=== PATIENT | female | born 1970 | race Caucasian/White ===

== ENCOUNTER 2022-12-17 23:17 | Emergency (ER) | payer OTHER ==
[2022-12-17 23:40] VITALS: RESP 18; BMI 32.9
[2022-12-18 00:47] VITALS: BP 127/76; PULSE 73; TEMP 98.7
[2022-12-18] MEDS ORDERED: ACETAMINOPHEN 1000 MG/100 ML BAG IVPB ONE (02:46)
[2022-12-18] MEDS ORDERED: DEXAMETHASONE SOD PHOSPHATE 10 MG/1 ML VIAL IVPUSH ONE (02:49)
[2022-12-18] MEDS ORDERED: DEXAMETHASONE SOD PHOSPHATE 10 MG/1 ML VIAL ONE (03:02)
[2022-12-18] MEDS ORDERED: ACETAMINOPHEN INJECTION 100 ML IVPB ONE (03:02)
[2022-12-18 03:19] LABS: BASO % 0.7 % (0-2.0); EOS % 0.6 % (0-4.5); HEMATOCRIT 46.4 % (32.4-45.2); HEMOGLOBIN 15.5 GM/dL (10.7-15.3); LYMPH % 30.2 % (8-40); MCH 30.6 pg (25.7-33.7); MCHC 33.5 g/dl (32.0-36.0); MEAN CELL VOLUME 91.6 fl (80-96); MEAN PLT VOLUME 9.7 fl (7.5-11.1); NEUT % 61.5 % (42.8-82.8); PLATELET COUNT 204 10^3/uL (134-434); RBC 5.06 M/mm3 (3.60-5.2); RDW 13.4 % (11.6-15.6)
[2022-12-18 04:03] LABS: POTASSIUM 4.7 mmol/L (3.5-5.1)
[2022-12-18 04:05] LABS: CALCIUM 9.7 mg/dL (8.5-10.1)
[2022-12-18 04:06] LABS: BLOOD UREA NITROGEN 9.3 mg/dL (7-18)
[2022-12-18 04:09] LABS: CREATININE 0.7 mg/dL (0.55-1.3)
[2022-12-18 04:10] LABS: BILIRUBIN,TOTAL 0.4 mg/dL (0.2-1); TOT PROT 7.8 g/dl (6.4-8.2)
== END 2022-12-18 04:51 | disposition home or self-care (01) ==
LOC: JER 23:17
PROC: 3E033NZ Introduction of Analgesics, Hypnotics, Sedatives into Peripheral Vein, Percutaneous Approach (ICD-10-PCS; principal; 2022-12-18)
PROC: 3E033GC Introduction of Other Therapeutic Substance into Peripheral Vein, Percutaneous Approach (ICD-10-PCS; 2022-12-18)
DX: M79.602 Pain in left arm (principal); M25.512 Pain in left shoulder; R53.1 Weakness
CPT/HCPCS: 36415; 73030-TC-LT-FY; 80053; 84484; 85025; 93005; 93010; 99285-25; J1100